=== PATIENT | female | born 1960 | race Caucasian/White ===

== ENCOUNTER 2020-05-06 18:35 | Inpatient (IN) | payer OTHER, SELFPAY ==
[~2020-05-06] VITALS: Ht 154.9 cm; Wt 61.2 kg
[~2020-05-06 18:35] MED LIST: ANAS1TAB56 PO; DULO20EC PO; GABA300C PO; GLIP5TAB14 PO; METF500T PO; SERT50TA PO; VIC PO; WARF-83 PO; WARF7.5T23 PO
[2020-05-06 18:40] VITALS: BP 168/101
[2020-05-06] MEDS ORDERED: ONDANSETRON 4 MG/2 ML VIAL IVP ONE (18:55)
[2020-05-06] MEDS ORDERED: NACL 0.9% 1,000 ML IV SCH (18:55)
[2020-05-06] MEDS ORDERED: MORPHINE SULFATE 4 MG/ML SYR IVP ONE (18:55)
[2020-05-06 19:18] LABS: BASOPHILS % (AUTO) 0.1 % (0.0-2.0); EOSINOPHILS % (AUTO) 0.2 % (0.0-4.0); HEMATOCRIT 39.4 % (36-48); LYMPHOCYTES # (AUTO) 0.6 K/uL (2.5-16.5); MEAN CORPUSCULAR HEMOGLOBIN 29 pg (27-31); MEAN CORPUSCULAR HGB CONC 33 g/dL (33-37); MONOCYTES # (AUTO) 0.5 K/uL (0.8-1.0); MONOCYTES % (AUTO) 5.4 % (1.7-9.3); NEUTROPHILS # (AUTO) 8.9 K/uL (1.8-7.7); NEUTROPHILS % (AUTO) 88.3 % (42.2-75.2); PLATELET COUNT (AUTO) 121 K/uL (140-450); RED BLOOD CELL COUNT(AUTO) 4.43 MIL/uL (4.20-5.40); RED CELL DISTRIBUTION WIDTH 13.7 % (11.6-13.7); WHITE BLOOD COUNT (AUTO) 10.1 K/uL (4.8-10.8)
[2020-05-06 19:40] LABS: ALBUMIN 3.6 g/dL (3.4-5.0); ANION GAP 15.3 (8-16); CARBON DIOXIDE 26.5 mmol/L (21-32); CREATININE 1.1 mg/dL (0.6-1.3); POTASSIUM 3.8 mmol/L (3.5-5.1); TOTAL BILIRUBIN 0.5 mg/dL (0.0-1.0)
[2020-05-06 20:13] LABS: APPEARANCE,URINE CLEAR (CLEAR); BILIRUBIN,URINE NEGATIVE (NEGATIVE); BLOOD, URINE TRACE-L (NEGATIVE); COLOR,URINE YELLOW (YELLOW); LEUKOCYTE ESTERASE ,URINE 1+ (NEGATIVE); NITRITE, URINE NEGATIVE (NEGATIVE); PH,URINE 5.5 (5.0-9.0); UGLUCOSE 3+ (NEGATIVE)
[2020-05-06 20:20] LABS: RBC,URINE 0-5 /HPF (0-5); WBC,URINE 16-25 (MOD) /HPF (0-5)
[2020-05-06] MEDS ORDERED: TRAZ-343 PO (21:35)
[2020-05-06] MEDS ORDERED: HYDR-5080 PO (21:35)
[2020-05-06] MEDS ORDERED: OMEP20TC22 PO (21:35)
[2020-05-06] MEDS ORDERED: GABA300C PO (21:35)
[2020-05-06] MEDS ORDERED: DULO60EC PO (21:35)
[2020-05-06] MEDS ORDERED: FOS70 PO (21:35)
[2020-05-06] MEDS ORDERED: AMOX500T3 PO (21:35)
[2020-05-06] MEDS ORDERED: GABA250S1 PO (21:35)
[2020-05-06] MEDS ORDERED: ONDANSETRON 4 MG/2 ML VIAL IVP PRN (21:50)
[2020-05-06] MEDS ORDERED: LORazepam 1 MG TAB PO PRN (21:50)
[2020-05-06] MEDS ORDERED: METOCLOPRAMIDE 10 MG/2 ML INJ VIAL IVP PRN (21:50)
[2020-05-06] MEDS ORDERED: POTASSIUM CHLORIDE 10 MEQ TABER PO PRN (21:50)
[2020-05-06] MEDS ORDERED: MAG SULF 2000 MG/WATER PREMIX 50 ML IV PRN (21:50)
[2020-05-06] MEDS ORDERED: KCL 20 MEQ/WATER INJ PREMIX 200 ML IV PRN (21:50)
[2020-05-06] MEDS ORDERED: MAGNESIUM OXIDE 400 MG TAB PO PRN (21:50)
[2020-05-06] MEDS ORDERED: HYDROmorphone 1 MG/ML AMP IVP PRN (21:50)
[2020-05-06] MEDS: ACETAMINOPHEN 325 MG TAB PO PRN (22:47)
[2020-05-06] MEDS: NACL 0.9% 1,000 ML IV SCH (22:47)
[2020-05-07 00:20] VITALS: BP 114/90
[2020-05-07 04:00] VITALS: BP 115/59
[2020-05-07 08:00] VITALS: BP 144/71
[2020-05-07 08:00] LABS: BASOPHILS % (AUTO) 0.2 % (0.0-2.0); EOSINOPHILS % (AUTO) 0.4 % (0.0-4.0); HEMATOCRIT 32.7 % (36-48); HEMOGLOBIN 10.9 g/dL (12.0-16.0); LYMPHOCYTES # (AUTO) 0.9 K/uL (2.5-16.5); MEAN CORPUSCULAR HEMOGLOBIN 29 pg (27-31); MEAN CORPUSCULAR HGB CONC 33 g/dL (33-37); MEAN CORPUSCULAR VOLUME 87.4 fL (80-94); MONOCYTES # (AUTO) 0.6 K/uL (0.8-1.0); MONOCYTES % (AUTO) 8.2 % (1.7-9.3); NEUTROPHILS # (AUTO) 5.6 K/uL (1.8-7.7); NEUTROPHILS % (AUTO) 78.2 % (42.2-75.2); PLATELET COUNT (AUTO) 116 K/uL (140-450); RED BLOOD CELL COUNT(AUTO) 3.74 MIL/uL (4.20-5.40); RED CELL DISTRIBUTION WIDTH 13.7 % (11.6-13.7); WHITE BLOOD COUNT (AUTO) 7.2 K/uL (4.8-10.8)
[2020-05-07 08:14] LABS: ALBUMIN 2.8 g/dL (3.4-5.0); ANION GAP 11.1 (8-16); CARBON DIOXIDE 27.7 mmol/L (21-32); CHOL/HDL RATIO 2.1 (1-4.5); CREATININE 0.6 mg/dL (0.6-1.3); MAGNESIUM 1.9 mg/dL (1.8-2.4); PHOSPHORUS 3.6 mg/dL (2.5-4.9); POTASSIUM 3.8 mmol/L (3.5-5.1); TOTAL BILIRUBIN 0.4 mg/dL (0.0-1.0)
[2020-05-07] MEDS: DOCUSATE SODIUM 100 MG GELCAP PO SCH (08:24)
[2020-05-07] MEDS: HYDROcodone/APAP 5/325 MG 1 TAB TAB PO PRN (08:25)
[2020-05-07] MEDS: ENOXAPARIN 40 MG/0.4 ML SYR SUBQ SCH (08:26)
[2020-05-07] MEDS: NACL 0.9% 1,000 ML IV SCH (10:41)
[2020-05-07 12:00] VITALS: BP 128/71
[2020-05-07] MEDS: MORPHINE SULFATE 4 MG/ML SYR IVP PRN ×2 (13:12→21:07)
[2020-05-07] MEDS ORDERED: TPN PER PHARMACY MC PRN (15:30)
[2020-05-07] MEDS: DEXTROSE 5% 1,000 ML IV SCH (15:55)
[2020-05-07 16:00] VITALS: BP 137/71
[2020-05-07] MEDS: PIPERACILLIN/TAZOBACTAM 4.5 GM in DEXTROSE 5% 100 ML IV SCH (17:08)
[2020-05-07] MEDS: GABAPENTIN 300 MG CAP PO SCH (17:09)
[2020-05-07 20:00] VITALS: BP 153/60
[2020-05-07] MEDS: traZODone 50 MG TAB PO SCH (21:37)
[2020-05-07] MEDS: DULoxetine 30 MG CAPDR PO SCH (21:37)
[2020-05-08] VITALS: BP 153/60
[2020-05-08] MEDS: GABAPENTIN 300 MG CAP PO SCH ×5 (00:33→23:23)
[2020-05-08] MEDS: PIPERACILLIN/TAZOBACTAM 4.5 GM in DEXTROSE 5% 100 ML IV SCH ×5 (00:53→23:22)
[2020-05-08] MEDS: MORPHINE SULFATE 4 MG/ML SYR IVP PRN ×5 (02:26→21:18)
[2020-05-08 04:00] VITALS: BP 98/53
[2020-05-08] MEDS: DEXTROSE 5% 1,000 ML IV SCH ×2 (04:00→16:30)
[2020-05-08] MEDS ORDERED: DEXTROSE 50% 50 ML SYR IVP PRN (04:20)
[2020-05-08 06:15] LABS: BASOPHILS % (AUTO) 0.2 % (0.0-2.0); EOSINOPHILS # (AUTO) 0.1 K/uL (0-0.4); EOSINOPHILS % (AUTO) 1.1 % (0.0-4.0); HEMATOCRIT 32.6 % (36-48); HEMOGLOBIN 10.8 g/dL (12.0-16.0); LYMPHOCYTES # (AUTO) 0.7 K/uL (2.5-16.5); LYMPHOCYTES % (AUTO) 14.2 % (20.5-51.1); MEAN CORPUSCULAR HEMOGLOBIN 29 pg (27-31); MEAN CORPUSCULAR HGB CONC 33 g/dL (33-37); MEAN CORPUSCULAR VOLUME 88.6 fL (80-94); MONOCYTES # (AUTO) 0.5 K/uL (0.8-1.0); MONOCYTES % (AUTO) 10.7 % (1.7-9.3); NEUTROPHILS # (AUTO) 3.5 K/uL (1.8-7.7); NEUTROPHILS % (AUTO) 73.8 % (42.2-75.2); PLATELET COUNT (AUTO) 102 K/uL (140-450); RED BLOOD CELL COUNT(AUTO) 3.68 MIL/uL (4.20-5.40); RED CELL DISTRIBUTION WIDTH 13.6 % (11.6-13.7); WHITE BLOOD COUNT (AUTO) 4.7 K/uL (4.8-10.8)
[2020-05-08 06:30] LABS: ALBUMIN 2.5 g/dL (3.4-5.0); ANION GAP 10.4 (8-16); CARBON DIOXIDE 28.6 mmol/L (21-32); CREATININE 0.6 mg/dL (0.6-1.3); MAGNESIUM 1.9 mg/dL (1.8-2.4); PHOSPHORUS 3.2 mg/dL (2.5-4.9); TOTAL BILIRUBIN 0.8 mg/dL (0.0-1.0)
[2020-05-08] MEDS: INSULIN LISPRO SLIDING SCALE 100 UNITS/ML VIAL SUBQ PRN ×2 (06:32→23:45)
[2020-05-08] MEDS: BLOOD GLUCOSE MONITORING 1 DEV DEV FS SCH ×3 (06:32→16:39)
[2020-05-08 08:00] VITALS: BP 135/63
[2020-05-08] MEDS: DOCUSATE SODIUM 100 MG GELCAP PO SCH (09:02)
[2020-05-08] MEDS: ENOXAPARIN 40 MG/0.4 ML SYR SUBQ SCH (09:02)
[2020-05-08 12:00] VITALS: BP 130/65
[2020-05-08 16:00] VITALS: BP 145/64
[2020-05-08 20:00] VITALS: BP 142/64
[2020-05-08] MEDS: MULTIVITAMIN-12 10 ML in DEXTROSE 50% 600 ML, AMINO ACIDS 8.5% 600 ML, FAT EMULSION 20%... IV SCH ×4 (20:06)
[2020-05-08] MEDS: DULoxetine 30 MG CAPDR PO SCH (20:16)
[2020-05-08] MEDS: traZODone 50 MG TAB PO SCH (20:16)
[2020-05-08] MEDS ORDERED: INSULIN LISPRO SLIDING SCALE 100 UNITS/ML VIAL SUBQ PRN (21:00)
[2020-05-08] MEDS: ZOLPIDEM 5 MG TAB PO PRN (21:18)
[2020-05-08] MEDS: BLOOD GLUCOSE MONITORING 1 DEV DEV MC SCH (23:47)
[2020-05-09] VITALS: BP 103/54
[2020-05-09] MEDS: ACETAMINOPHEN 325 MG TAB PO PRN ×2 (00:32→13:06)
[2020-05-09] MEDS: DEXTROSE 5% 1,000 ML IV SCH (00:37)
[2020-05-09] MEDS: HYDROcodone/APAP 5/325 MG 1 TAB TAB PO PRN ×4 (03:35→17:52)
[2020-05-09 04:00] VITALS: BP 106/53
[2020-05-09] MEDS: PIPERACILLIN/TAZOBACTAM 4.5 GM in DEXTROSE 5% 100 ML IV SCH ×3 (05:02→17:51)
[2020-05-09] MEDS: GABAPENTIN 300 MG CAP PO SCH ×3 (05:04→17:52)
[2020-05-09] MEDS: INSULIN LISPRO SLIDING SCALE 100 UNITS/ML VIAL SUBQ PRN ×3 (05:47→17:54)
[2020-05-09] MEDS: BLOOD GLUCOSE MONITORING 1 DEV DEV MC SCH ×3 (05:52→17:52)
[2020-05-09 06:14] LABS: BASOPHILS % (AUTO) 0.3 % (0.0-2.0); HEMATOCRIT 32.4 % (36-48); HEMOGLOBIN 10.8 g/dL (12.0-16.0); LYMPHOCYTES # (AUTO) 0.3 K/uL (2.5-16.5); LYMPHOCYTES % (AUTO) 2.3 % (20.5-51.1); MEAN CORPUSCULAR HEMOGLOBIN 29 pg (27-31); MEAN CORPUSCULAR HGB CONC 33 g/dL (33-37); MEAN CORPUSCULAR VOLUME 86.8 fL (80-94); MONOCYTES # (AUTO) 0.3 K/uL (0.8-1.0); MONOCYTES % (AUTO) 2.8 % (1.7-9.3); NEUTROPHILS % (AUTO) 94.6 % (42.2-75.2); PLATELET COUNT (AUTO) 84 K/uL (140-450); RED BLOOD CELL COUNT(AUTO) 3.74 MIL/uL (4.20-5.40); RED CELL DISTRIBUTION WIDTH 13.2 % (11.6-13.7); WHITE BLOOD COUNT (AUTO) 11.6 K/uL (4.8-10.8)
[2020-05-09 06:33] LABS: ALBUMIN 2.3 g/dL (3.4-5.0); ANION GAP 13.7 (8-16); CARBON DIOXIDE 25.7 mmol/L (21-32); CREATININE 0.8 mg/dL (0.6-1.3); MAGNESIUM 1.8 mg/dL (1.8-2.4); PHOSPHORUS 3.2 mg/dL (2.5-4.9); POTASSIUM 3.4 mmol/L (3.5-5.1); TOTAL BILIRUBIN 0.5 mg/dL (0.0-1.0)
[2020-05-09 08:00] VITALS: BP 115/57
[2020-05-09] MEDS: DOCUSATE SODIUM 100 MG GELCAP PO SCH (08:55)
[2020-05-09] MEDS: ENOXAPARIN 40 MG/0.4 ML SYR SUBQ SCH (08:55)
[2020-05-09 12:00] VITALS: BP 130/59
[2020-05-09 16:00] VITALS: BP 98/58
[2020-05-09] MEDS ORDERED: ERTA1VIA2 IJ (16:15)
[2020-05-09 20:00] VITALS: BP 92/51
[2020-05-09] MEDS: MULTIVITAMIN-12 10 ML in DEXTROSE 50% 600 ML, AMINO ACIDS 8.5% 600 ML, FAT EMULSION 20%... IV SCH ×4 (20:00)
[2020-05-09] MEDS: DULoxetine 30 MG CAPDR PO SCH (21:13)
[2020-05-09] MEDS: traZODone 50 MG TAB PO SCH (21:14)
[2020-05-09] MEDS: ZOLPIDEM 5 MG TAB PO PRN (21:33)
[2020-05-10] VITALS: BP 90/52
[2020-05-10] MEDS: PIPERACILLIN/TAZOBACTAM 4.5 GM in DEXTROSE 5% 100 ML IV SCH ×3 (00:50→13:04)
[2020-05-10] MEDS: GABAPENTIN 300 MG CAP PO SCH ×3 (00:50→13:04)
[2020-05-10] MEDS: INSULIN LISPRO SLIDING SCALE 100 UNITS/ML VIAL SUBQ PRN ×2 (01:02→05:50)
[2020-05-10] MEDS: ACETAMINOPHEN 325 MG TAB PO PRN ×2 (01:38→11:31)
[2020-05-10 04:00] VITALS: BP 91/47
[2020-05-10] MEDS: BLOOD GLUCOSE MONITORING 1 DEV DEV MC SCH ×3 (05:41→11:25)
[2020-05-10 06:07] LABS: ANION GAP 11.9 (8-16); CARBON DIOXIDE 24.1 mmol/L (21-32); CREATININE 1.1 mg/dL (0.6-1.3); PHOSPHORUS 2.5 mg/dL (2.5-4.9); TOTAL BILIRUBIN 0.5 mg/dL (0.0-1.0)
[2020-05-10 06:35] LABS: BASOPHILS % (AUTO) 0.3 % (0.0-2.0); EOSINOPHILS % (AUTO) 0.3 % (0.0-4.0); HEMATOCRIT 27.2 % (36-48); HEMOGLOBIN 9.1 g/dL (12.0-16.0); LYMPHOCYTES # (AUTO) 0.6 K/uL (2.5-16.5); LYMPHOCYTES % (AUTO) 4.7 % (20.5-51.1); MEAN CORPUSCULAR HEMOGLOBIN 29 pg (27-31); MEAN CORPUSCULAR HGB CONC 34 g/dL (33-37); MEAN CORPUSCULAR VOLUME 85.9 fL (80-94); MONOCYTES # (AUTO) 0.8 K/uL (0.8-1.0); MONOCYTES % (AUTO) 5.8 % (1.7-9.3); NEUTROPHILS % (AUTO) 88.9 % (42.2-75.2); RED BLOOD CELL COUNT(AUTO) 3.17 MIL/uL (4.20-5.40); RED CELL DISTRIBUTION WIDTH 13.5 % (11.6-13.7)
[2020-05-10 06:53] LABS: PLATELET COUNT (AUTO) 65 K/uL (140-450)
[2020-05-10 06:54] LABS: WHITE BLOOD COUNT (AUTO) 13.5 K/uL (4.8-10.8)
[2020-05-10 08:00] VITALS: BP 91/47
[2020-05-10] MEDS: ENOXAPARIN 40 MG/0.4 ML SYR SUBQ SCH (09:00)
[2020-05-10] MEDS: DOCUSATE SODIUM 100 MG GELCAP PO SCH (09:57)
[2020-05-10] MEDS: HYDROcodone/APAP 5/325 MG 1 TAB TAB PO PRN (10:07)
[2020-05-10 16:58] VITALS: BP 98/49
[2020-05-10] MEDS ORDERED: FLU VACCINE QS2020-21 0.5 ML SYR IMVAC PRN (17:25)
[2020-05-10] MEDS ORDERED: MULTIVITAMIN IV SCH ×4 (20:00)
[2020-05-10] MEDS ORDERED: [UNRECOGNIZED DRUG - OTHER] IV SCH ×4 (20:00)
[2020-05-10] MEDS ORDERED: DEXTROSE IV SCH ×4 (20:00)
[2020-05-10] MEDS ORDERED: AMINO ACIDS IV SCH ×4 (20:00)
== END 2020-05-10 17:30 | disposition home health service (06) | DRG 388 ==
LOC: MED 18:35 → MTU 22:03
PROVIDERS: ADMIT Hospitalist; ATTEND Hospitalist
PROC: 0D9670Z Drainage of Stomach with Drainage Device, Via Natural or Artificial Opening (ICD-10-PCS; principal; 2020-05-06)
PROC: 3E02340 Introduction of Influenza Vaccine into Muscle, Percutaneous Approach (ICD-10-PCS; 2020-05-10)
DX: K56.609 Unspecified intestinal obstruction, unspecified as to partial versus complete obstruction (principal); K85.90 Acute pancreatitis without necrosis or infection, unspecified; Z16.12 Extended spectrum beta lactamase (ESBL) resistance; Z20.822 Contact with and (suspected) exposure to COVID-19; Z23 Encounter for immunization; K57.30 Diverticulosis of large intestine without perforation or abscess without bleeding; F32.9 Major depressive disorder, single episode, unspecified; F41.9 Anxiety disorder, unspecified; G89.29 Other chronic pain; E11.40 Type 2 diabetes mellitus with diabetic neuropathy, unspecified; M54.9 Dorsalgia, unspecified; M81.0 Age-related osteoporosis without current pathological fracture; G47.00 Insomnia, unspecified; T45.1X5A Adverse effect of antineoplastic and immunosuppressive drugs, initial encounter; K21.9 Gastro-esophageal reflux disease without esophagitis; K59.00 Constipation, unspecified; Z90.49 Acquired absence of other specified parts of digestive tract; Z90.710 Acquired absence of both cervix and uterus; Z92.21 Personal history of antineoplastic chemotherapy; Z85.3 Personal history of malignant neoplasm of breast; Y92.89 Other specified places as the place of occurrence of the external cause
CPT/HCPCS: 36415; 71045; 74018; 74250; 80053; 81001; 82948; 83036; 83690; 83735; 84100; 84478; 85025; 87081; 87086; 96361; 96374; 96375; 99285; A9153; J1170; J1650; J1815; J2270; J2405; J2543; J7030; J7060; Q9967